=== PATIENT | male | born 1950 | race Caucasian/White ===

== ENCOUNTER 2019-07-28 08:11 | Day surgery (SDC) | payer OTHER ==
--- NOTE | 2019-07-26 14:42 | RAD REPORT ---
EXAM DESCRIPTION: Shaw Laboy (2 Views)07/26/2019 2:37 pm CLINICAL HISTORY: Preop for hernia repair COMPARISON: None FINDINGS: The lungs appear clear of acute infiltrate. The heart is normal size IMPRESSION: No acute abnormalities displayed
[2019-07-26 15:31] LABS: Basophils % 0.6 % (0-1.3); Hematocrit 40.5 % (39.6-49.0); Lymphocytes % 30.9 % (15.3-44.8); MPV 8.2 fL (7.6-11.3); RBC Red Blood Cell Count 4.43 M/uL (4.33-5.43)
[2019-07-26 15:58] LABS: Potassium 4.7 mmol/L (3.5-5.1)
--- NOTE | 2019-07-26 16:03 | EKG ---
Test Date: 2019-07-26 Test Time: 14:13:22 Rate Supervisor: NAVI MEASUREMENT RESULTS: Intervals: Rate: 57 KS: 158 QRSD: 94 QT: 422 QTc: 410 [place]: P: 60 KS: 158 QRS: 49 T: 19 INTERPRETIVE STATEMENTS: Sinus bradycardia with sinus arrhythmia Otherwise normal ECG Compared to ECG 07/16/1994 12:00:00 No significant changes Electronically Signed On 07-26-19 16:02:17 PANEL FITTER by Atul Grubbs
[2019-07-26 16:08] LABS: Blood Morphology Comment NOT SEEN (NOT SEEN); Platelet Estimate ADEQ; Urine White Blood Cell Casts OK
--- OUTSIDE RECORDS SUMMARY | 2019-07-28 08:15 | XMS REPORT ---
:1950 [facility] Address [address] [place] [address] Dr. Holley [address] [place] [id number] Care Team Providers Name Role Phone Unavailable Unavailable Unavailable Payers Payer Name Policy Type Policy Number Effective Date Expiration Date Problems This patient has no known problems. Allergies, Adverse Reactions, Alerts Allergy Name Allergy Status Severity Reaction(s) Onset Inactive Treating Comments Type Date Date Clinician hydrocodone DA Active [place] 2016-07 00:00:0 0 cigarette and DA Active SV 2014-03 cigar 00:00:0 0 dowtherm DA Active SV 2014-03 00:00:0 0 Medications This patient has no known medications.
[2019-07-28] MEDS ORDERED: Ringers Lactate 1,000 ML IV ONE ×2 (08:47→11:32)
[2019-07-28] MEDS ORDERED: propofoL 200 MG/20 ML VIAL IV ONE (09:34)
[2019-07-28] MEDS ORDERED: MIDAZOLAM HCL 2 MG/2 ML INJ ONE (09:34)
[2019-07-28] MEDS ORDERED: LIDOCAINE 2% MPF 5 ML VIAL ONE (09:34)
[2019-07-28] MEDS ORDERED: FENTANYL CITR 100 MCG/2 ML ONE (09:34)
[2019-07-28] MEDS ORDERED: ROCURONIUM 50 MG/5 ML VIAL IV ONE (09:37)
[2019-07-28] MEDS ORDERED: ONDANSETRON 4 MG/2 ML VIAL ONE (09:37)
[2019-07-28] MEDS ORDERED: GLYCOPYRROLATE 0.2 MG/ML SYR ONE (09:37)
[2019-07-28] MEDS ORDERED: CEFAZOLIN/SWI 1gm 1 GM/10 ML SYR ONE (09:41)
[2019-07-28] MEDS ORDERED: EPHEDRINE SULF 50 MG/ML VIAL ONE (09:58)
--- NOTE | 2019-07-28 10:59 | P.BOP ---
Preoperative diagnosis: tender right inguinal hernia Postoperative diagnosis: same Primary procedure: Laparoscopic repair of tender right inguinal hernia with mesh Food Beverage Server: Giovanna Cruz) Estimated blood loss: <10cc Specimen: none Findings: as above Anesthesia: General Complications: None Implants: 3d mesh Transferred to: Recovery Room Condition: Good
[2019-07-28] MEDS ORDERED: TAMSULOSIN 0.4 MG SR CAP PO ONE (13:15)
[2019-07-28 14:29] VITALS: BP 139/61; TEMP 897.1; O2SAT 100
--- NOTE | 2019-08-02 20:50 | OP ---
Date of Procedure: 07/28/2019 Surgeon: Alexandre Maldonado MD Interventional Technologist: RIP Nguyen. Preoperative Diagnosis: Tender right inguinal hernia. Postoperative Diagnosis: Tender right inguinal hernia. Procedure: Laparoscopic repair of tender right inguinal hernia with mesh. Anesthesia: General plus local. Implant: 3D mesh. Indications: This is the case of a male, who comes to us with a tender right inguinal hernia. Benef its, alternatives, and risks of laparoscopic, possible open repair of a right inguinal hernia with me sh fully explained to the patient, which include, but are not limited to infection, bleeding, damage to adjacent structures, anesthesia complication, recurrence, chronic pain, chronic numbness, HI, and even . He also understands this may not relieve any symptoms. He might need more than one surg ical intervention. He also was explained pros and cons of mesh placement. All the questions were an swered to his satisfaction. He did consent for mesh placement too. Description Of Procedure: Patient was brought to the operating room, placed in supine position. Ane sthesia was done without complication. Abdominal area was prepped and draped in a sterile fashion. Marcaine 0.5% was injected for local anesthetic followed by sharp incision of the skin in the infraum bilical region. The anterior rectus sheath was opened on the right side. The posterior rectus sheat h was exposed. The extraperitoneal space was gently developed with the help of blunt dissection and a balloon pacemaker catheter with trocar placed in the area and directed towards the pubic symphysis. A laparoscope was placed in the area, balloon was inflated under direct visualization to create the extraperitoneal space. The balloon was deflated and removed gently and then after that, we insuffla aparna the area. After insufflation with the camera in we proceeded to place a 5 mm trocar just above t he pubic symphysis and another one long-term between the first and the second one. The preperitoneal s pace was further developed by exposing the inferior epigastric vessels and keeping them anterior. Co oper ligament was dissected laterally to the junction with the iliac veins. The dissection continued inferiorly to the iliopubic tract, avoiding damage to the femoral branch of the genitofemoral nerve and lateral femoral cutaneous nerve. The cord structures were skeletonized. The hernia sac was iden tified and dissected free from the cord structures and reduced back into the peritoneal cavity by gen tle traction. At that moment, I proceeded to put a 3D mesh in the working space to one of the trocar sites. The mesh was placed to cover direct and indirect spaces. The mesh was secured in place with SorbaFix lateral and superior to the iliopubic tract and inferior and medial to the Finn ligament. After ensuring hemostasis, we proceeded then to deflate the area under direct visualization holding the mesh in place and the hernia sac reduced into the abdominal cavity while removing the insufflati on. Anterior rectus sheath was approximated with #1 Vicryl. The skin was approximated. Patient aiden erated the procedure well. At the end of the case, the testicles were within the scrotum. REJI/HÉCTOR Voice ID: [id number] Report ID: [id number]
--- NOTE | 2019-08-02 20:50 | DS ---
Date of Discharge: 07/28/2019 Diagnosis: Tender right inguinal hernia. Procedure: Laparoscopic repair of tender right inguinal hernia with mesh. Disposition: Home. Activity: As tolerated. No heavy lifting. Follow Up: In my office in 1 week. Call for appointment [phone]. Medications: See orders. REJI/HÉCTOR Voice ID: [id number] Report ID: [id number]
== END 2019-07-28 15:43 | disposition home or self-care (01) ==
LOC: OR 08:11
PROVIDERS: ATTEND Surgery
PROC: 0YU54JZ Supplement Right Inguinal Region with Synthetic Substitute, Percutaneous Endoscopic Approach (ICD-10-PCS; principal; 2019-07-28 09:45)
DX: K40.90 Unilateral inguinal hernia, without obstruction or gangrene, not specified as recurrent (principal); E11.9 Type 2 diabetes mellitus without complications; I10 Essential (primary) hypertension; E07.9 Disorder of thyroid, unspecified; E78.00 Pure hypercholesterolemia, unspecified
CPT/HCPCS: 93005; 85025; 80048; 36415; 71046; 49650; J2704; J2250; J3010; J0690; J7120 ×2; J2405

== ENCOUNTER 2019-07-28 19:10 | Emergency (ER) | payer OTHER ==
--- OUTSIDE RECORDS SUMMARY | 2019-07-28 19:12 | XMS REPORT ---
:1950 Author Organization [facility] Address [address] [place] [address] Dr. Holley [address] [place] [id number] Care Team Providers Name Role Phone Unavailable Unavailable Unavailable Payers Payer Name Policy Type Policy Number Effective Date Expiration Date Problems This patient has no known problems. Allergies, Adverse Reactions, Alerts Allergy Name Allergy Status Severity Reaction(s) Onset Inactive Treating Comments Type Date Date Clinician hydrocodone DA Active [place] 2016-07 00:00:0 0 cigarette and DA Active SV 2014-03 cigar 00:00:0 0 dowtherm DA Active SV 2014-03 00:00:0 0 Medications This patient has no known medications.
[2019-07-28 19:53] LABS: Urine Bacteria <20 /HPF (NONE SEEN)
--- NOTE | 2019-07-28 20:04 | EDPHYS ---
Physician Documentation [facility] Name: Brian Dorado Age: 69 yrs Sex: Male : 1950 Arrival Date: 07/28/2019 Time: 19:11 Bed 6 Private MD: ED Physician Julia Estrada HPI: 07/28 19:26 This 69 yrs old Male presents to ER via Unassigned with complaints of Urinary rn Retention. 19:26 The patient presents with urinary symptoms, dribbling of urine, unable to void. Onset: rn The symptoms/episode began/occurred this morning. Modifying factors: The symptoms are alleviated by nothing, the symptoms are aggravated by urinating. Severity of symptoms: At their worst the symptoms were moderate, in the emergency department the symptoms are unchanged. The patient has not experienced similar symptoms in the past. The patient has been recently seen by a physician:. Reports just had hernia surgery this AM, uncomplicated, reports had difficulty urinating after surgery, was just dribbling, sent home with return precautions, has enlarged prostate, but unable to urinate, states only drops come out. No fever. NO hematuria. . Historical: - Allergies: 19:10 Hydrocodone-Acetaminophen; jb4 - Home Meds: 19:10 Avapro Oral [Active]; levothyroxine oral [Active]; irbesartan oral oral [Active]; jb4 flowmax [Active]; - PMHx: 19:10 Hernia; Diabetes - NIDDM; Hypertension; Hypothyroidism; jb4 - PSHx: 19:10 HALINA hip replacement; Right knee replacement.; jb4 19:10 Hernia repair; jb4 - Immunization history:: Adult Immunizations up to date. - Coronavirus screen:: The patient has NOT traveled to [place] in the past 14 days. Proceed with normal triage process as indicated. The patient has NOT had contact with known/suspected case of Coronavirus? Proceed with normal triage procedures. - Family history:: not pertinent. - Social history:: Smoking status: Patient denies any tobacco usage or history of. Patient/guardian denies using alcohol, street drugs. - Hospitalizations: : No recent hospitalization is reported. - Ebola Screening: : No symptoms or risks identified at this time. ROS: 19:26 Constitutional: Negative for fever, chills, and weight loss, Eyes: Negative for injury, rn pain, redness, and discharge, Neck: Negative for injury, pain, and swelling, Cardiovascular: Negative for chest pain, palpitations, and edema, Respiratory: Negative for shortness of breath, cough, wheezing, and pleuritic chest pain, Abdomen/GI: + lower abd pain Back: Negative for injury and pain, : + unable to urinate MS/Extremity: Negative for injury and deformity, Skin: Negative for injury, rash, and discoloration, Neuro: Negative for headache, weakness, numbness, tingling, and seizure. Exam: 19:26 Constitutional: Thin male, appears uncomfortable Head/Face: Normocephalic, rn atraumatic. ENT: MMM Cardiovascular: Regular rate and rhythm. No pulse deficits. Respiratory: No increased work of breathing, no retractions or nasal flaring. Abdomen/GI: soft, + fullness suprapubic region, + mild tenderness suprapubic area MS/ Extremity: Pulses equal, no cyanosis. Neurovascular intact. Full, normal range of motion. Equal circumference. Neuro: Awake and alert, GCS 15, oriented to person, place, time, and situation. Cranial nerves II-XII grossly intact. Motor strength 5/5 in all extremities. Sensory grossly intact. Cerebellar exam normal. Normal gait. Vital Signs: 19:10 BP 145 / 79; Pulse 73; Resp 20; Temp 97.8(O); Pulse Ox 100% on R/A; Weight 81.65 kg jb4 (R); Height 5 ft. 10 in. (177.80 cm) (R); Pain 10/10; 20:30 BP 118 / 72; Pulse 70; Resp 16; Pulse Ox 98% on R/A; Pain 0/10; jb4 19:10 Body Mass Index 25.83 (81.65 kg, 177.80 cm) jb4 MDM: 19:12 Patient medically screened. rn 20:01 Differential diagnosis: UTI, urinary retention. Data reviewed: vital signs, nurses rn notes, lab test result(s), and as a result, I will discharge patient. Counseling: I had a detailed discussion with the patient and/or guardian regarding: the historical points, exam findings, and any diagnostic results supporting the discharge/admit diagnosis, lab results, the need for outpatient follow up, to return to the emergency department if symptoms worsen or persist or if there are any questions or concerns that arise at home. Response to treatment: the patient's symptoms have markedly improved after treatment, and as a result, I will discharge patient. Special discussion: I discussed with the patient/guardian in detail that at this point there is no indication for admission to the hospital. It is understood, however, that if the symptoms persist or worsen the patient needs to return immediately for re-evaluation. Based on the history and exam findings, there is no indication for further emergent testing or inpatient evaluation. I discussed with the patient/guardian the need to see the urologist for further evaluation of the symptoms. ED course: Pt with urinary retention, likely 2/2 surgery/anesthesia as well as baseline prostate enlargement and patient not taking flomax. UA neg for infection. Will dc home with urology f/u. Told to return here if has been 2 weeks and still not able to get appt. . 20:03 ED course: Pt already on bactrim, and has flomax prescription, taken today and will rn fill rest tomorrow. . 07/28 19:16 Order name: Urine Culture rn 07/28 19:16 Order name: Urine Microscopic Only; Complete Time: 20:04 rn 07/28 19:16 Order name: Bladder Scanner; Complete Time: 19:34 rn 07/28 19:16 Order name: Naidu; Complete Time: 19:34 rn 07/28 19:16 Order name: Urine Dipstick-Ancillary (obtain specimen); Complete Time: 19:34 rn 07/28 19:41 Order name: Urine Dipstick--Ancillary (enter results) mw2 Administered Medications: No medications were administered Disposition: 07/28/19 20:03 Discharged to Home. Impression: Retention of urine, unspecified. - Condition is Stable. - Discharge Instructions: Naidu Catheter Care, Adult, Acute Urinary Retention, Male. - Medication Reconciliation Form, Thank You Letter, Antibiotic Education, Prescription Opioid Use form. - Follow up: Delfina Donovan MD; When: 1 week; Reason: Recheck today's complaints, Re-evaluation by your physician. - Problem is new. - Symptoms have improved. Signatures: Dispatcher [employer] EDMS Estrada Dumont MD MD rn Bryson, James, RN RN jb4 Corrections: (The following items were deleted from the chart) 20:43 20:03 07/28/2019 20:03 Discharged to Home. Impression: Retention of urine, unspecified. jb4 Condition is Stable. Forms are Medication Reconciliation Form, Thank You Letter, Antibiotic Education, Prescription Opioid Use. Follow up: Delfina Donovan; When: 1 week; Reason: Recheck today's complaints, Re-evaluation by your physician. Problem is new. Symptoms have improved. rn
--- NOTE | 2019-07-28 20:04 | ER ---
Nurse's Notes [facility] Name: Brian Dorado Age: 69 yrs Sex: Male : 1950 Arrival Date: 07/28/2019 Time: 19:11 Bed 6 Private MD: Diagnosis: Retention of urine, unspecified Presentation: 07/28 19:10 Presenting complaint: Patient states: I had hernia repair surgery this morning and was jb4 instructed to come in if I had no urine output by midnight. I couldn't wait till midnight. I haven't been able to pee all day and when I try only little drops come out. 19:10 Transition of care: patient was not received from another setting of care. Onset of jb4 symptoms was July 28, 2019. Risk Assessment: Do you want to hurt yourself or someone else? Patient reports no desire to harm self or others. Initial Sepsis Screen: Does the patient meet any 2 criteria? No. Patient's initial sepsis screen is negative. Does the patient have a suspected source of infection? No. Patient's initial sepsis screen is negative. Care prior to arrival: None. 19:10 Method Of Arrival: Wheelchair jb4 19:10 Acuity: ANNY 3 jb4 Historical: - Allergies: 19:10 Hydrocodone-Acetaminophen; jb4 - Home Meds: 19:10 Avapro Oral [Active]; levothyroxine oral [Active]; irbesartan oral oral [Active]; jb4 flowmax [Active]; - PMHx: 19:10 Hernia; Diabetes - NIDDM; Hypertension; Hypothyroidism; jb4 - PSHx: 19:10 HALINA hip replacement; Right knee replacement.; jb4 19:10 Hernia repair; jb4 - Immunization history:: Adult Immunizations up to date. - Coronavirus screen:: The patient has NOT traveled to [place] in the past 14 days. Proceed with normal triage process as indicated. The patient has NOT had contact with known/suspected case of Coronavirus? Proceed with normal triage procedures. - Family history:: not pertinent. - Social history:: Smoking status: Patient denies any tobacco usage or history of. Patient/guardian denies using alcohol, street drugs. - Hospitalizations: : No recent hospitalization is reported. - Ebola Screening: : No symptoms or risks identified at this time. Screenin:10 Abuse screen: Denies threats or abuse. Nutritional screening: No deficits noted. jb4 Tuberculosis screening: No symptoms or risk factors identified. Fall Risk None identified. Assessment: 19:10 General: Appears in no apparent distress. uncomfortable, Behavior is cooperative, jb4 appropriate for age, anxious. Pain: Complains of pain in suprapubic area Pain does not radiate. Pain currently is 10 out of 10 on a pain scale. Quality of pain is described as pressure, Pain began gradually, Is continuous. Neuro: Level of Consciousness is awake, alert, obeys commands, Oriented to person, place, time, situation. Cardiovascular: Patient's skin is warm and dry. Respiratory: Airway is patent Respiratory effort is even, unlabored, Respiratory pattern is regular, symmetrical. GI: No signs and/or symptoms were reported involving the gastrointestinal system. : Parent/caregiver report the patient having inability to void since Hernia repair surgery this AM pain in suprapubic area Pain is 10 out of 10 on a pain scale. EENT: No signs and/or symptoms were reported regarding the EENT system. Derm: Skin is intact, Skin is pink, warm \T\ dry. Musculoskeletal: Circulation, motion, and sensation intact. Range of motion: intact in all extremities. 19:30 Reassessment: 16 fr [address] in [address]. PT reports pain has decreased to 1/10 after jb4 catheter placement. Patient states feeling better. 20:40 Reassessment: Patient appears in no apparent distress at this time. Patient and/or jb4 family updated on plan of care and expected duration. Pain level reassessed. Patient is alert, oriented x 3, equal unlabored respirations, skin warm/dry/pink. Pt verbalized understanding of d/c and follow up instructions. Leg bag connected to arreguin catheter. Pt assisted to lobby to wait for ride via wheelchair. Patient denies pain at this time. Patient states feeling better. Vital Signs: 19:10 BP 145 / 79; Pulse 73; Resp 20; Temp 97.8(O); Pulse Ox 100% on R/A; Weight 81.65 kg jb4 (R); Height 5 ft. 10 in. (177.80 cm) (R); Pain 10/10; 20:30 BP 118 / 72; Pulse 70; Resp 16; Pulse Ox 98% on R/A; Pain 0/10; jb4 19:10 Body Mass Index 25.83 (81.65 kg, 177.80 cm) jb4 ED Course: 19:10 Arm band placed on right wrist. jb4 19:10 Patient has correct armband on for positive identification. Placed in gown. Bed in low jb4 position. Call light in reach. Side rails up X 1. Pulse ox on. NIBP on. 19:11 Patient arrived in ED. as 19:12 Estrada Dumont MD is Attending Physician. rn 19:12 Bladder scan completed. 999+ provider notified. jb4 19:30 Arreguin cath inserted, using sterile technique, 16 Fr., by nm, balloon inflated, to jb4 gravity drainage, urine specimen collected. returned clear yellow urine. Patient tolerated well. 19:34 Brenda White RN is Primary Nurse. ph 19:34 Trent García, RN is Primary Nurse. jb4 19:36 Triage completed. jb4 20:03 Delfina Donovan MD is Referral Physician. rn 20:42 No provider procedures requiring assistance completed. Patient did not have IV access jb4 during this emergency room visit. Administered Medications: No medications were administered Outcome: 20:03 Discharge ordered by . rn 20:43 Discharged to home via wheelchair, with friend. jb4 20:43 Condition: stable 20:43 Discharge instructions given to patient, Instructed on discharge instructions, follow up and referral plans. Demonstrated understanding of instructions, follow-up care. 20:43 Patient left the ED. jb4 Signatures: Maria M Maldonado as Estrada Dumont MD MD rn Brenda White RN RN Trent García RN RN jb4
[2019-07-28 20:26] LABS: Urine Blood 2+ (NEG); Urine Glucose NEGATIVE (NEG); Urine Protein NEGATIVE (NEG); Urine pH 5.5 (5.0-7.0)
[2019-07-28 20:55] VITALS: TEMP 97.8
[2019-07-28 20:57] VITALS: BP 118/72; O2SAT 98
== END 2019-07-28 20:43 | disposition home or self-care (01) ==
LOC: ER 19:10
DX: R33.9 Retention of urine, unspecified (principal); I10 Essential (primary) hypertension; E11.9 Type 2 diabetes mellitus without complications; E03.9 Hypothyroidism, unspecified; Z88.5 Allergy status to narcotic agent
CPT/HCPCS: 51702; 81003; 81015; 87086; 87088; 99284